=== PATIENT | male | born 2000 | race Caucasian/White ===

== ENCOUNTER 2022-07-13 03:35 | Emergency (ER) | payer BC, SELFPAY ==
[2022-07-13 03:39] VITALS: BP 130/78; PULSE 103; RESP 16; TEMP 37.1; O2SAT 99; BMI 19.9
--- NOTE | 2022-07-13 03:54 | CRLHL7_ITS ---
For Patients: As a result of the Century Cures Act, medical imaging exams and procedure reports are released immediately into your electronic medical record. You may view this report before your referring provider. If you have questions, please contact your health care provider. INDICATION: Hemoptysis. TECHNIQUE: Chest 2 view. COMPARISON: None. FINDINGS: Cardiovascular and mediastinum: Heart size and vasculature are normal in caliber and appearance. Lungs and pleural spaces: Lungs are clear. No sign of infiltrate or mass. No sign of pleural effusion. No pneumothorax. Bones and soft tissues: No significant findings. IMPRESSION: No acute pulmonary process. Dictated by Narinder Bowman MD @ 07/13/2022 4:32:30 AM (Electronically Signed)
--- NOTE | 2022-07-13 03:57 | ED.GENADULT ---
HPI - General Adult General Chief complaint: Cough Stated complaint: Coughing up blood. Time Seen by Provider: 07/13/22 03:48 Source: patient Mode of arrival: ambulatory Limitations: no limitations History of Present Illness HPI narrative: 22-year-old male presents the emergency department with hemoptysis. This is the 2nd episode in about a month. 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 Patient reports that he has not had any symptoms of infection or fever. No history of TB. He does not smoke. No nose bleed. Denies any throat tickle or irritation. States that he started coughing and coughed up blood. He denies that it was clotted or mucousy. He says that it was just charles blood. He does not bring a picture or a sample for me to see. He is unable to quantify the amount. Says that it was bright red blood. Liquid blood per his description. No trauma or injury. No history of DVT or PE. No shortness of breath. He does not take any anticoagulants. He does not have any history of cancer. Bleeding has ceased. No vomiting, no suspicion for GI, or pharyngeal or nasal source. Past medical history he states is benign, denies any major long-term health problems. No prescription medications, no allergies. Nonsmoker. ROS is notable for the hemoptysis only, denies all other ROS times 12 systems. Related Data Allergies Allergy/AdvReac Type Severity Reaction Status Date / Time No Known Drug Allergies Allergy Verified 07/13/22 03:45 [facility] Social History Smoking Status: Current every day smoker Do you use any of these nicotine containing products: E-Cigarettes How often do you have a drink containing alcohol: 2-4 times a month How many standard drinks containing alcohol do you have on a typical day: 1 or 2 AUDIT-C Alcohol total score: 2 Non-prescribed substance use: denies use Exam Const: Vital Signs, click to edit/add: Vital Signs - 24 hr 07/13/22 03:39 Temperature 98.8 F Pulse Rate [Pulse Oximeter] 103 H Respiratory Rate 16 Blood Pressure [Le ft Upper Arm] 130/78 Pulse Oximetry 99 Oxygen Delivery Me thod Room Air Documenting provider has reviewed patient's vital signs: yes Common normals: no apparent distress and alert General appearance: cooperative and comfortable Orientation/consciousness: Yes awake HENMT: Common normals: normocephalic, external nose normal and nasal mucous membranes and turbinates normal Head and scalp: normocephalic Face and sinus: normal facial exam Nose: external nose normal, nares normal and nasal mucous membranes and turbinates normal Mouth: oral and palatal mucosa normal Other: Normal tongue and dentition. No signs of bleeding. There is a little bit of irritation on the back of the throat, but no active signs of bleeding. Eye: Common normals: conjunctivae normal General eye: normal appearance of both eyes Conjunctiva: conjunctiva(e) normal Neck & C-Spine: Common normals: full ROM and no lymphadenopathy Resp: Common normals: normal respiratory effort, no use of accessory muscles and clear to auscultation bilaterally Effort & inspection: able to speak in complete sentences Auscultation: clear to auscultation bilaterally Cardio: Common normals: regular rate, regular rhythm, S1 normal heart sound, S2 normal heart sound and no murmurs Rate: regular rate Rhythm: regular rhythm Heart sounds: S1 normal and S2 normal Neuro: Common normals: moves all extremities and no focal motor deficits Sensorium/orientation: awake and alert Psych: Appearance: grossly normal Activity/motor behavior: appropriate eye contact Mood and affect: euthymic mood Skin: Common normals: no rashes or lesions noted Narrative: No petechiae, bruising or signs of hemorrhage. General skin exam: no rashes or lesions noted Course Course Hospital Course: Differential diagnosis including or pharyngeal source, nasal, GI or pulmonary source. Working on a glass factory, I suspect that this might be inhalational and is more likely an or pharyngeal source but cannot exclude a pulmonary source. There are no signs of current active bleeding. I recommend a CBC to look at platelet counts and ensure that he has adequate blood clotting cells and no anemia. I would also recommend chest x-ray. I let him know that typically this would be worked up by a serology teacher. Sometimes they want a CT, sometimes a bronchoscopy, sometimes they are reassured by other parts of the exam. Since there are no signs of active hemorrhage, if the chest x-ray is reassuring, would recommend discharge and further outpatient workup. He verbalizes understanding and agreement of this plan. Vital Signs Vital signs: Initial Vital Signs Temperature 98.8 F 07/13/22 03:39 Temperature Source Temporal Artery Scan 07/13/22 03:39 Pulse Rate 103 H 07/13/22 03:39 Respiratory Rate 16 07/13/22 03:39 Blood Pressure 130/78 07/13/22 03:39 Blood Pressure Mean 95 07/13/22 03:39 Blood Pressure Position Supine 07/13/22 03:39 Pulse Oximetry 99 07/13/22 03:39 Oxygen Delivery Method Room Air 07/13/22 03:39 Vital Signs Temperature 98.8 F 07/13/22 03:39 Pulse Rate 103 H 07/13/22 03:39 Respiratory Rate 16 07/13/22 03:39 Blood Pressure 130/78 07/13/22 03:39 Pulse Oximetry 99 07/13/22 03:39 Oxygen Delivery Method Room Air 07/13/22 03:39 Temperature 98.8 F 07/13/22 03:39 Pulse Rate 103 H 07/13/22 03:39 Respiratory Rate 16 07/13/22 03:39 Blood Pressure 130/78 07/13/22 03:39 Pulse Oximetry 99 07/13/22 03:39 Oxygen Delivery Method Room Air 07/13/22 03:39 Medical Decision Making MDM Narrative Medical decision making narrative: No further episodes of hemoptysis in our care. Discussed plan of care with patient. Let him know that I would recommend a pulmonology referral. Discussed that he should have a full physical performed and pulmonology referral by primary care provider. He is still covered through his parents insurance. Counseled on how to fine which providers are in network. Alarm symptoms reviewed that would be indications come back to the ED. He verbalizes understanding and agreement Lab Data Lab results reviewed: Yes I reviewed the patient's lab results Lab results narrative: Reassuring Labs: Lab Results 07/13/22 Range/Units 04:05 WBC 6.40 (4.50-11.00) K/uL RBC 4.42 (4.30-5.90) m/uL Hgb 14.2 (13.5-17.5) gm/dL Hct 40.3 (37.0-53.0) % MCV 91 (80-100) fL MCH 32 (26-34) pg MCHC 35 (32-36) gm/dL RDW Coeff of Natasha 11.7 (11.5-15.5) % Plt Count 253 (140-440) K/uL Neut % (Auto) 56.0 (42.0-72.0) % Lymph % (Auto) 35.2 (20-44) % [place] % (Auto) 6.3 (0.0-11.0) % Eos % (Auto) 1.7 (0.0-7.0) % Baso % (Auto) 0.5 (0.0-3.0) % Neut # (Auto) 3.59 (1.7-7.0) K/uL Lymph # (Auto) 2.25 (0.90-2.90) K/uL [place] # (Auto) 0.40 (0.00-0.90) K/UL Eos # (Auto) 0.11 (0.00-0.50) K/uL Baso # (Auto) 0.03 (0.00-0.30) K/uL Imaging Data Chest x-ray: Attestation: I have reviewed the pertinent imaging results. My impression: Normal chest x-ray Radiologist's impression: IMPRESSION: No acute pulmonary process Discharge Plan Discharge Clinical Impression: Cough with hemoptysis Patient Disposition: Home, Self-Care Condition: Stable Instructions: Coughing Up Blood (Hemoptysis) (ED) Additional Instructions: As we discussed, your basic blood work today and chest x-ray are reassuring. This tells me that you have enough blood clotting cells and that the bleeding is not from what we would consider a spontaneous source from a blood problem. Your chest x-ray also does not show any signs of collapsed lung, infection or tumors which is also great. As expected, it does not tell us the source of your bleeding. My hope is that this is just coming from the lower part of the back of your throat caused by irritants that your inhaling at work. As we discussed, I would like for you to try wearing an N95 mask for a few weeks and see if this improves her symptoms. I do also think that this needs further workup by a specialist that does this type of thing. Call in the morning and make an appointment with the primary care provider. It may take a couple of weeks to get in. Make the appointment specifically for establish care, coughing up blood, pulmonology referral. LEs have no that your CBC and chest x-ray were normal, you can request copies of those to be sent if the doctor is not in our network. The serology teacher sometimes once a CT scan and sometimes they want to do what is called a bronchoscopy which is where they go down and physically look into the lungs with a small camera. These are both rather expensive tests and it is best that the specialist makes the choice of which is right for you. In the meantime, if it is a small amount of blood that your coughing up and it stops quickly, you do not need to come to the emergency department right away. If the bleeding is persistent, you are feeling short of breath, lose consciousness or pass out or if there are any other severe symptoms, he should come back to the emergency department in the meantime. Activity Level: No Restrictions Discharge Diet: Regular Follow Up/Referrals: Masood Saldaña, LENA, ATC, CSCS [Jet Inspector Certified] - Stand Alone Forms: [employer] Info Instructions
[2022-07-13 04:11] LABS: Basophils Absolute Auto 0.03 K/uL (0.00-0.30); Basophils Percent Auto 0.5 % (0.0-3.0); Eosinophils Absolute Auto 0.11 K/uL (0.00-0.50); Eosinophils Percent Auto 1.7 % (0.0-7.0); Hematocrit 40.3 % (37.0-53.0); Hemoglobin* 14.2 gm/dL (13.5-17.5); Immature Granulocytes Abs Auto 0.02 K/uL (0.00-0.30); Immature Granulocytes Pct Auto 0.3 %; Lymphocytes Absolute Auto 2.25 K/uL (0.90-2.90); Lymphocytes Percent Auto 35.2 % (20-44); Mean Corpuscular HGB Conc 35 gm/dL (32-36); Mean Corpuscular Hemoglobin 32 pg (26-34); Mean Corpuscular Volume 91 fL (80-100); Monocytes Percent Auto 6.3 % (0.0-11.0); Neutrophils Absolute Auto 3.59 K/uL (1.7-7.0); Platelet Count* 253 K/uL (140-440); RDW Coefficient of Variation % 11.7 % (11.5-15.5); Red Blood Count 4.42 m/uL (4.30-5.90)
[2022-07-13 04:12] LABS: Slide Review Reflex No
== END 2022-07-13 04:55 | disposition home or self-care (01) ==
PROVIDERS: Emergency Provider Family Medicine
DX: R04.2 Hemoptysis (principal)
CPT/HCPCS: 36415; 71046; 85025; 99283